=== PATIENT | male | born 1985 | race Caucasian/White ===

== ENCOUNTER 2024-08-08 03:25 | Emergency (ER) | payer OTHER ==
[~2024-08-08] VITALS: Ht 175.3 cm; Wt 79.4 kg
[2024-08-08] MEDS ORDERED: SULF1TAB48 PO (03:58)
[2024-08-08 04:09] VITALS: BP 118/72; TEMP 98; O2SAT 99
== END 2024-08-08 04:10 | disposition home or self-care (01) ==
LOC: ER 03:25
DX: R22.31 Localized swelling, mass and lump, right upper limb (principal); F17.210 Nicotine dependence, cigarettes, uncomplicated; J45.909 Unspecified asthma, uncomplicated; Z59.00 Homelessness unspecified; Z98.890 Other specified postprocedural states
CPT/HCPCS: A4606; A4663